=== PATIENT | female | born 1995 | race Caucasian/White ===

== ENCOUNTER 2016-10-27 07:40 | Inpatient (IN) | payer MEDICAID ==
[~2016-10-27] VITALS: Ht 160 cm; Wt 60.0 kg
[2016-10-27 07:40] VITALS: Ht 160 cm; Wt 60.0 kg
[~2016-10-27 07:40] MED LIST: AMIODARONE 900 MG INJ ONE; ATROPINE 1 MG/10 ML SYRINGE ONE; CA CHLORIDE 10% 10 ML SYRINGE ONE; DEXTROSE 5% WATER 500 ML BAG ONE; DEXTROSE 50% 50 ML SYRINGE ONE; DOPamine-D5W 1.6 MG/ML 250 ML ONE; EPINEPHrine 0.1 MG/ML SYG ONE; LIDOCAINE 100 MG SYRINGE ONE; MAGNESIUM SULFATE 1 GM/100 ML D5W IVPB ONE; NA BICARBONATE 8.4% 50 ML SYG ONE
[2016-10-27] MEDS: DOBUTamine/D5W 1 MG/ML DRIP 250 ML IV SCH ×2 (08:00→13:01)
[2016-10-27] MEDS ORDERED: SODIUM CHLORIDE 0.9% 1L BAG IV* STA (08:09)
[2016-10-27] MEDS ORDERED: NORepinephrine 8MG/250 ML (PMX 250 ML IV STA (08:09)
[2016-10-27 08:25] LABS: BASOPHILS % 0.4 % (0.0-2.0); EOSINOPHILS % 0.3 % (0.0-7.0); HEMATOCRIT 30.4 % (37.0-47.0); HEMOGLOBIN 9.9 g/dl (12.0-16.0); LYMPHOCYTES # 5.9 10^3/ul (0.8-2.9); LYMPHOCYTES % 51.6 % (15.0-51.0); MEAN CORPUSCULAR HEMOGLOBIN 27.3 pg (29.0-33.0); MEAN CORPUSCULAR HGB CONC 32.4 g/dl (32.0-37.0); MEAN CORPUSCULAR VOLUME 84.1 fl (82.0-101.0); MEAN PLATELET VOLUME 7.1 fl (7.4-10.4); MONOCYTE # 0.1 10^3/ul (0.3-0.9); NEUTROPHIL # 5.4 10^3/ul (1.6-7.5); NEUTROPHILS % 46.7 % (39.0-77.0); PLATELET COUNT 183 10^3/UL (140-440); RED BLOOD COUNT 3.62 10^6/ul (4.20-5.40); RED CELL DISTRIBUTION WIDTH 13.5 % (11.5-14.5); UNCORRECTED WBC 11.5 10^3/ul (4.8-10.8); WHITE BLOOD COUNT 11.5 10^3/ul (4.8-10.8)
[2016-10-27 08:31] LABS: CONDITION 1; LH ANALYZER COMMENTS 1
--- NOTE | 2016-10-27 08:33 | RADRPT ---
PROCEDURE: XR Chest. CLINICAL INDICATION: Line placement, sepsis TECHNIQUE: A single AP view of the chest was obtained. COMPARISON: None. FINDINGS: The endotracheal tube tip is 3.5 cm above the vu. The tip of the enteric tube extends below the left diaphragm. There are right upper lobe alveolar opacities. No pleural effusion or pneumothorax is seen. The ca rdiomediastinal silhouette is within normal limits for size. The osseous structures are unremarkabl e. IMPRESSION: 1. Right upper lobe pneumonia. 2. Tubes and lines, as described above. RPTAT: HH .Pauline Garcia MD, MD Date Time Electronically viewed and signed by .Pauline Garcia MD, MD on 10/27/2016 08:33 .G/
[2016-10-27 08:40] LABS: AADO2 Arterial 389.5 mmHg (7.0-24.0); Arterial Base Excess -22.2 mmol/L (-3.0-3); Arterial COHb 0.3 % (0.0-3.0); Arterial Fraction of Oxyhgb 98.2 % (93.0-99.0); Arterial HCO3 10.2 mmol/L (22.0-26.0); Arterial MetHb 0.2 % (0.0-1.5); Arterial Total Hemglobin 11.1 g/dl (12.0-18.0); MODE VENT - AC
[2016-10-27] MEDS ORDERED: SODIUM BICARBONATE (IV ADD) 150 MEQ in DEXTROSE 5% 1,000 ML IV STA (08:42)
[2016-10-27 08:44] LABS: ALBUMIN 1.9 g/dl (3.3-4.9)
[2016-10-27 08:47] LABS: ALBUMIN/GLOBULIN RATIO 1.11; CREATININE 1.41 mg/dl (0.44-1.00); TOTAL PROTEIN 3.6 g/dl (6.1-8.1)
[2016-10-27 08:48] LABS: CALCIUM 8.3 mg/dl (8.4-10.2)
[2016-10-27 08:50] LABS: INR 2.32; PROTIME 25.7 Sec (12.2-14.2)
[2016-10-27] MEDS ORDERED: PIPER-TAZO 3.375 GM IV (PMX) 100 ML IVPB STA (08:54)
[2016-10-27] MEDS ORDERED: VANCOMYCIN 1 GM (PMX) 250 ML IVPB STA (08:54)
[2016-10-27 09:07] LABS: TROPONIN-I 0.923 ng/ml (0.00-0.12)
[2016-10-27 09:14] LABS: PARTIAL THROMBOPLASTIN TIME 74.2 Sec (25.0-35.0)
--- NOTE | 2016-10-27 09:16 | RADRPT ---
PROCEDURE: CT brain without contrast CLINICAL INDICATION: Cardiac arrest TECHNIQUE: CT of the brain without contrast was performed on a multidetector CT scanner, with multi planar reformats. One or more of the following dose reduction techniques were used: Automated expos ure control, adjustment in mA and / or kV according to patient size, use of iterative reconstructive technique. CTDIvol = 45 mGy; DLP = 630 mGy-cm. COMPARISON: None available FINDINGS: No acute intracranial hemorrhage is identified. No extra-axial fluid collection is seen. There is no mass effect. No midline shift is identified. Ventricles and sulci are within normal limits for size and configuration. The density of the brain is within normal limits. Cazares-white differentiation is preserved. Osseous structures are unremarkable. Mastoid air cells and imaged paranasal sinuses grossly clear. IMPRESSION: No acute intracranial pathology identified. If there is persistent clinical concern, follow-up with MRI is advised. RPTAT: VV .Adam Tiwari MD, MD Date Time Electronically viewed and signed by .Adam Tiwari MD, on 10/27/2016 09:15 .O/
--- NOTE | 2016-10-27 09:30 | ERA ---
ER Documentation Chief Complaint Date/Time DATE: 10/27/16 TIME: 09:28 Chief Complaint ARRIVED IN FULL CARDIAC ARREST, POSSIBLE HEROIN OD HPI History obtained from EMS this patient is unable to give a history secondary to her clinical condition. This is a 21-year-old female who was brought in by EMS in full cardiac arrest. According to EMS they received a call that was unresponsive patient in a local hotel room. When they entered the room they stated the patient was apneic, with no pulse. They began CPR. They give a total of 3 mg of epinephrine, 1 amp of sodium bicarbonate, and 1 amp of D50, and 2 mg of Narcan. The did get return of spontaneous circulation. Patient was transferred to the emergency room. ROS All systems reviewed and are negative except as per history of present illness. Medications Home Meds Unable to Obtain Active Prescriptions or Reported Meds Allergies Allergies: Coded Allergies: Unable to Assess (Verified Allergy, Severe, 10/27/16) Physical Exam Vitals Vital Signs Date Time Temp Pulse Resp B/P Pulse Ox O2 Delivery O2 Flow Rate FiO2 10/27/16 08:10 88.6 63 20 66/44 99 Mechanical Ventilator Physical Exam INITIAL VITAL SIGNS: Reviewed by me GENERAL: The patient is well developed, apneic, severe distress HEENT: 6 mm pupils fixed, nonreactive. EOMI. There is no scleral icterus. NECK: C-spine is soft and supple, there is no meningismus. There is no cervical lymphadenopathy. LUNGS: No breath sound HEART: Normal heart sounds ABDOMEN: Soft, non-tender, non-distended. There are bowel sounds in all four quadrants. No rebound or guarding. EXTREMITIES: Cold to touch, peripheral cyanosis, NEUROLOGICAL: GCS of 3 SKIN: Cold to touch, peripheral cyanosis HEME/LYMPHATIC: There is no evidence of excessive bruising or lymphedema. PSYCHIATRIC: The patient does not appear anxious or depressed. Result Diagram: 10/27/16 0750 10/27/16 0750 Results 24 hrs Laboratory Tests Test 10/27/16 07:50 10/27/16 08:29 Activated Partial Thromboplast Time 74.2Sec Alanine Aminotransferase (ALT/SGPT) IU/L Albumin 1.9g/dl Albumin/Globulin Ratio 1.11 Alkaline Phosphatase 35IU/L Anion Gap 32 Aspartate Amino Transf (AST/SGOT) IU/L Basophils # 0.010^3/ul Basophils % 0.4% Blood Morphology Comment Blood Urea Nitrogen 12mg/dl Calcium Level 8.3mg/dl Carbon Dioxide Level 23mmol/L Chloride Level 100mmol/L Creatinine 1.41mg/dl Direct Bilirubin 0.00mg/dl Eosinophils # 0.010^3/ul Eosinophils % 0.3% Globulin 1.70g/dl Glucose Level 348mg/dl Hematocrit 30.4% Hemoglobin 9.9g/dl INR International Normalized Ratio 2.32 Indirect Bilirubin 0.0mg/dl Lactic Acid Level 22.7mmol/L Lymphocytes # 5.910^3/ul Lymphocytes % 51.6% Mean Corpuscular Hemoglobin 27.3pg Mean Corpuscular Hemoglobin Concent 32.4g/dl Mean Corpuscular Volume 84.1fl Mean Platelet Volume 7.1fl Monocytes # 0.110^3/ul Monocytes % 1.0% Neutrophils # 5.410^3/ul Neutrophils % 46.7% Nucleated Red Blood Cells # 0.010^3/ul Nucleated Red Blood Cells % 0.0/100WBC Platelet Count 79183^3/UL Potassium Level 5.0mmol/L Prothrombin Time 25.7Sec Prothrombin Time Ratio 2.0 Red Blood Count 3.6210^6/ul Red Cell Distribution Width 13.5% Sodium Level 150mmol/L Total Bilirubin 0.0mg/dl Total Protein 3.6g/dl Troponin I 0.923ng/ml White Blood Count 11.510^3/ul Arterial Blood HCO3 10.2mmol/L Arterial Blood Base Excess -22.2mmol/L Arterial Blood Oxygen Saturation 98.7mmHG Parker Test N/A Arterial Blood Gas Puncture Site Femoral Arterial Blood Carboxyhemoglobin 0.3% Arterial Blood Date Drawn 10/27/2016 8:32:35 AM Arterial Blood Methemoglobin 0.2% Arterial Blood pCO2 (Temp correct) 53.5mmhg Arterial Blood pH (Temp corrected) 6.900 Arterial Blood pO2 (Temp corrected) 270.0mmHG Blood Gas A-a O2 Differential 389.5mmHg Blood Gas Actual Respiration Rate 18 Blood Gas Critical Value Read Back RUBY Lizarraga Blood Gas Modality VENT - AC Blood Gas Notified Time 10/27/2016 8:40:13 AM Blood Gas Notified Whom MDA Blood Gas Respiration Rate 18.0 Blood Gas Specimen Source Blood arterial Blood Gas Temperature 37.0C Blood Gas Tidal Volume 450.0mL FiO2 100.0% Oxyhemoglobin Percent 98.2% Total Hemoglobin 11.1g/dl Current Medications Medications (Trade) Dose Ordered Sig/Marcela Route PRN Reason Start Time Stop Time Status Last Admin Dose Admin Sodium Chloride 1860 ml 1,860 ml BOLUS OVER 2 HOURS STAT IV* 10/27/16 08:09 10/27/16 08:10 DC Norepinephrine 250 ml @ 7.5 mls/hr ONCE STAT IV 10/27/16 08:09 10/28/16 17:28 Sodium Bicarbonate 150 meq/Dextrose 1,150 ml @ 150 mls/hr Q7H40M STAT IV 10/27/16 08:42 10/27/16 16:21 Vancomycin HCl 250 ml @ 125 mls/hr ONCE STAT IVPB 10/27/16 08:54 10/27/16 10:53 Piperacillin Sod/ Tazobactam Sod (Zosyn 3.375gm/ 100 ml (Pmx)) 100 ml @ 200 mls/hr ONCE STAT IVPB 10/27/16 08:54 10/27/16 09:23 DC Procedures/MDM EKG: Rate/Rhythm: [Normal Sinus Rhythm] QRS, ST, T-waves: Diffuse ST depressions Impression: Diffuse ST depressions throughout all leads Chest X-ray 1V Interpreted by me: Soft Tissue: ET tube 2 cm above vu, right upper lobe of Bones: No acute abnormalities Mediastinum/Cardiac Silhouette/Lungs: [No acute abnormalities] CT head; no stroke no bleed This 21-year-old female presents to the emergency room cardiac arrest after being found down. This patient was recently kicked out of her sober living home for testing positive for heroin. She was found down with a last known well time of 1 AM. When she arrived she was pulseless and apneic. The patient was intubated, and CPR was started. We were able to get return of spontaneous circulation. Please see CPR no. This patient does have severely elevated lactic acid, she is acidotic, and hypothermic. She is on a Claire hugger, and on a bicarb drip. Her x-ray does show right upper lobe infiltrate. I do feel this patient has aspirated after overdosing on heroin. This patient had a central line placed, she was started on levo fed, and dopamine. She was given greater than 4 L of IV fluids here in the emergency room and also started on vancomycin and Zosyn. She be placed in ICU at this time. I spoken to the mother who is at bedside and she is aware of this patient's critical condition. Cardiopulmonary Resuscitation by me: See code documentation for specific details. ACLS and BLS were performed with high quality chest compressions and minimal interruptions. Reversible causes were assessed and treated. Endotracheal Intubation by me: Pre assessment performed. See preceding note for details. Pre-oxygenation performed with 100% oxygen RSI: Performed w/o complication or hypoxic events. Medications as ordered. Blade: [Mac 4] ET Tube: 7.5 cm Depth: 23 cm at the lip Intubation confirmed by colorimetric CO2, equal breath sounds, quiet over the stomach. Chest X-ray 1V Interpreted by me: 3 cm above the vu ET tube. Normal soft tissue, No pneumothorax. Central Line Placement by me: Patient consented, sterilely draped, full prep, gown, glove, mask, time out performed. Anesthesia: 1% lidocaine locally Location: Right femoral vein Device: Multiple lumen Technique: Seldinger technique. Secured with suture. Results: Venous return from all ports with easy saline flush. No complications. Guide wire retrieved and disposed of. [ED Ultrasound: Central line placed by me using concurrent ultrasound guidance. Real time image archived in the medical record confirms vascular anatomy. [Chest X-ray 1V Interpreted by me: Central line in SVC, Normal soft tissue, No evidence of pneumothorax.] Critical Care: Excluding all billable procedures Time: 48 minutes Treatments/Evaluations: Close monitoring and treatment of unstable vital signs, cardiorespiratory, and neurologic status, while maintaining tight balance of fluid, respiratory, and cardiac interventions. Departure Diagnosis: Primary Impression: Cardiac arrest Additional Impressions: Metabolic acidosis Hypothermia Aspiration pneumonia Heroin overdose Lactic acidosis Condition: Critical CLAUDE BELTRAN DO Oct 27, 2016 09:29
[2016-10-27] MEDS ORDERED: SOD CHLORIDE 0.9% 1,000 ML IV SCH (10:11)
[2016-10-27] MEDS ORDERED: SOD CHLORIDE 0.9% 1,000 ML IV STA (10:15)
[2016-10-27 10:19] LABS: ADD UMIC YES; URINE BILIRUBIN (Dip) 1+ (NEGATIVE); URINE BLOOD (Dip) NEGATIVE (NEGATIVE); URINE COLOR YELLOW (YELLOW); URINE GLUCOSE (Dip) NEGATIVE (NEGATIVE); URINE KETONES (Dip) TRACE (NEGATIVE); URINE LEUKOCYTE ESTERASE (Dip) NEGATIVE (NEGATIVE); URINE NITRITE (Dip) NEGATIVE (NEGATIVE); URINE TOTAL PROTEIN (Dip) 1+ (NEGATIVE); URINE UROBILINOGEN (Dip) 0.2 E.U./dL (0.1-1.0)
[2016-10-27] MEDS ORDERED: NORepinephrine 8MG/250 ML (PMX 250 ML IV SCH (10:30)
[2016-10-27] MEDS ORDERED: ONDANSETRON 4 MG INJ IV PRN (10:30)
[2016-10-27] MEDS ORDERED: IPRATROPIUM (NEB) 0.5 MG/2.5 ML AMP NEB PRN (10:30)
[2016-10-27] MEDS ORDERED: DOCUSATE SODIUM 100 MG CAP PO PRN (10:30)
[2016-10-27] MEDS ORDERED: ALBUTEROL 0.5% (NEB) 2.5 MG/0.5 ML AMP NEB PRN (10:30)
[2016-10-27] MEDS ORDERED: LORAZEPAM 2 MG INJ IV PRN (10:30)
[2016-10-27] MEDS ORDERED: ACETAMINOPHEN 650 MG SUPP PR PRN (10:30)
[2016-10-27] MEDS ORDERED: VANCOMYCIN IV PER PHARMACY XX SCH (10:30)
[2016-10-27] MEDS ORDERED: NITROGLYCERIN (SL) 0.4 MG TAB SL PRN (10:30)
[2016-10-27] MEDS ORDERED: NALOXONE (0.4 MG/ML) INJ IV PRN (10:30)
[2016-10-27] MEDS ORDERED: ACETAMINOPHEN 325 MG TAB PO PRN (10:30)
[2016-10-27 10:53] LABS: BARBITURATES NEGATIVE (NEGATIVE); BENZODIAZEPINES POSITIVE (NEGATIVE); CANNABINOIDS NEGATIVE (NEGATIVE); COCAINE NEGATIVE (NEGATIVE); ICTOTEST NEGATIVE (NEGATIVE)
[2016-10-27 10:54] LABS: OPIATES POSITIVE (NEGATIVE)
[2016-10-27 10:55] LABS: SQUAMOUS EPITHELIAL CELL,UR FEW; URINE RBCS 0-2 /HPF (0)
--- NOTE | 2016-10-27 11:28 | CONS ---
Date/Time of Note Date/Time of Note DATE: 10/27/16 TIME: 11:20 Assessment/Plan Assessment/Plan Additional Assessment/Plan Assessment recommendations; 1. Patient admitted with cardiac arrest with prolonged CPR lasting more than 20 minutes in aggregate initial one was 10 minutes and the patient had another event in the emergency room lasting another 10 minutes. 2. Likely aspiration pneumonia involving right upper lobe patient currently on adequate antibiotic coverage. 3. Severe hypotension , metabolic acidosis currently on sodium bicarbonate drip patient also adequately fluid resuscitated. Patient on high-dose Levophed and dopamine drips. 4. Severe anoxic brain injury possibility of brain is very high. 5. Mild hypernatremia, and mild elevation in serum creatinine likely from cardiac arrest. Next 6. Mild elevation in troponin likely from CPR. Continue current treatment, sodium bicarb drip, pressors. Continue current antibiotic regimen. Patient also was severely hypothermic with a core temperature of 80F currently on a warming blanket. Would recommend not raising a core temperature to normal and would prefer mild hypothermia. Patient will need to have an arterial line placed when she arrived in ICU. Will obtain neurology consult. Renal function. Her most is extremely poor. Consultation Date/Type/Reason Admit Date/Time Date of Consultation: Oct 27, 2016 Type of Consultation: pulmonary/ critical care Reason for Consultation Respiratory failure, cardiac arrest. Hx of Present Illness Patient is a 20-year-old girl who was brought into the emergency room by EMS after the patient was found unresponsive outside of her home she was obtained from patient's counselor who was present in the emergency room according to him the patient has a history of drug abuse and was found unresponsive EMS were called in and the patient was pulseless along CPR was done lasting about 10 minutes 50 revival of pulse the patient was brought into ER where another episode of cardiac arrest was witnessed and the patient again underwent another round of CPR with 0 Vicryl vital signs patient also has been adequately fluid resuscitated and is currently on maximum doses of Levophed and dopamine drips. Patient remains completely unresponsive. Or intubated. Past medical history; history of drug abuse. Medications please see profile. Family history. Patient does have a supportive family her mother is present in the hospital. Occupational history. Patient is currently unemployed. Next Review of systems; currently unable to be obtained. Social History Smoking Status: Unknown if ever smoked Exam/Review of Systems Vital Signs Vitals Vital Signs Date Time Temp Pulse Resp B/P Pulse Ox O2 Delivery O2 Flow Rate FiO2 10/27/16 08:10 88.6 63 20 66/44 99 Mechanical Ventilator 10/27/16 08:00 100 Exam General exam; young woman or intubated completely unresponsive. HEENT examination supple neck, no JVD, no lymphadenopathy, no thyromegaly, fair dentition. Pupils are completely dilated and nonreactive to light. Chest examination clear to auscultation bilaterally, S1-S2 audible no murmurs. Next Abdomen examination; soft nondistended no organomegaly bowel sounds are absent. Extremity examination; no peripheral edema. Pulses are feeble. WINDOW CUTTER examination; patient completely unresponsive. Results Result Diagram: 10/27/16 0750 10/27/16 0750 Results 24 hrs Laboratory Tests Test 10/27/16 07:50 10/27/16 08:29 10/27/16 09:58 Activated Partial Thromboplast Time 74.2 *H Alanine Aminotransferase (ALT/SGPT) Albumin 1.9 L Albumin/Globulin Ratio 1.11 Alkaline Phosphatase 35 L Anion Gap 32 H Aspartate Amino Transf (AST/SGOT) Basophils # 0.0 Basophils % 0.4 Blood Morphology Comment Blood Urea Nitrogen 12 Calcium Level 8.3 L Carbon Dioxide Level 23 Chloride Level 100 Creatinine 1.41 H Direct Bilirubin 0.00 Eosinophils # 0.0 Eosinophils % 0.3 Globulin 1.70 Glucose Level 348 H Hematocrit 30.4 L Hemoglobin 9.9 L INR International Normalized Ratio 2.32 Indirect Bilirubin 0.0 Lactic Acid Level 22.7 *H Lymphocytes # 5.9 H Lymphocytes % 51.6 H Mean Corpuscular Hemoglobin 27.3 L Mean Corpuscular Hemoglobin Concent 32.4 Mean Corpuscular Volume 84.1 Mean Platelet Volume 7.1 L Monocytes # 0.1 L Monocytes % 1.0 Neutrophils # 5.4 Neutrophils % 46.7 Nucleated Red Blood Cells # 0.0 Nucleated Red Blood Cells % 0.0 Platelet Count 183 Potassium Level 5.0 Prothrombin Time 25.7 H Prothrombin Time Ratio 2.0 Red Blood Count 3.62 L Red Cell Distribution Width 13.5 Sodium Level 150 H Total Bilirubin 0.0 L Total Protein 3.6 L Troponin I 0.923 *H White Blood Count 11.5 H Arterial Blood HCO3 10.2 L Arterial Blood Base Excess -22.2 L Arterial Blood Oxygen Saturation 98.7 H Parker Test N/A Arterial Blood Gas Puncture Site Femoral Arterial Blood Carboxyhemoglobin 0.3 Arterial Blood Date Drawn 10/27/2016 8:32:35 AM Arterial Blood Methemoglobin 0.2 Arterial Blood pCO2 (Temp correct) 53.5 H Arterial Blood pH (Temp corrected) 6.900 *L Arterial Blood pO2 (Temp corrected) 270.0 H Blood Gas A-a O2 Differential 389.5 H Blood Gas Actual Respiration Rate 18 Blood Gas Critical Value Read Back RUBY Lizarraga Blood Gas Modality VENT - AC Blood Gas Notified Time 10/27/2016 8:40:13 AM Blood Gas Notified Whom MDA Blood Gas Respiration Rate 18.0 Blood Gas Specimen Source Blood arterial Blood Gas Temperature 37.0 Blood Gas Tidal Volume 450.0 FiO2 100.0 Oxyhemoglobin Percent 98.2 Total Hemoglobin 11.1 L Urine Amphetamines Screen POSITIVE Urine Barbiturates NEGATIVE Urine Benzodiazepines Screen POSITIVE Urine Bilirubin 1+ H Urine Cannabinoids NEGATIVE Urine Clarity CLEAR Urine Cocaine Screen NEGATIVE Urine Color YELLOW Urine Glucose NEGATIVE Urine Hemoglobin NEGATIVE Urine Ictotest NEGATIVE Urine Ketones TRACE H Urine Leukocyte Esterase NEGATIVE Urine Microscopic RBC 0-2 Urine Microscopic WBC NONE SEEN Urine Nitrite NEGATIVE Urine Opiates Screen POSITIVE Urine Test NEGATIVE Urine Specific Tarpley >=1.030 H Urine Squamous Epithelial Cells FEW Urine Total Protein 1+ H Urine Urobilinogen 0.2 E.U./dL Urine pH 5.5 Medications Medications Current Medications Naloxone HCl (Narcan) 0.4 mg Q3M PRN IV DECREASED REPIRATORY RATE; Start at 10:30; Status UNV Ondansetron HCl (Zofran Inj) 4 mg Q6H PRN IV NAUSEA AND/OR VOMITING; Start at 10:30; Status UNV Nitroglycerin (Nitroglycerin (Sl Tab) 0.4 Mg) 1 tab Q5M PRN SL CHEST PAIN; Start 10/27/16 at 10:30; Status UNV Acetaminophen (Tylenol Tab) 650 mg Q6H PRN PO PAIN LEVEL 1-3 OR FEVER; Start at 10:30; Status UNV Acetaminophen (Tylenol Supp) 650 mg Q4H PRN MI PAIN LEVEL 1-3 OR FEVER; Start 10/27/16 at 10:30; Status UNV Lorazepam (Ativan) 1 mg Q2H PRN IV ANXIETY; Start 10/27/16 at 10:30; Status UNV Docusate Sodium (Colace) 100 mg Q12H PRN PO CONSTIPATION; Start 10/27/16 at 10: 30; Status UNV Pantoprazole 40 mg 40 mg DAILY@06 IV ; Start 10/28/16 at 06:00; Status UNV Cefepime HCl 50 ml @ 100 mls/hr Q12 IVPB ; Start 10/27/16 at 21:00; Status UNV Sodium Chloride 1,000 ml @ 100 mls/hr Q10H IV ; Start 10/27/16 at 10:30; Status UNV Sodium Chloride 1,000 ml @ 1,000 mls/hr Q1H IV ; Start 10/27/16 at 10:11; Stop 10/27/16 at 12:10; Status UNV Dobutamine HCl/ Dextrose 250 ml @ 9 mls/hr TITRATE IV ; Start 10/27/16 at 10:30 ; Status UNV HOA VILLANUEVA Oct 27, 2016 11:27
[2016-10-27 11:38] LABS: CK-MB 38.2 ng/ml (0.0-2.4)
[2016-10-27] MEDS ORDERED: VASOPRESSIN 60 UNIT in SOD CHLORIDE 0.9% 57 ML IV STA (11:40)
[2016-10-27 11:59] LABS: TROPONIN-I 7.41 ng/ml (0.00-0.12)
--- NOTE | 2016-10-27 12:02 | HP ---
DATE OF ADMISSION: 10/27/2016 CONSULTANTS: 1. Neurology. 2. Cardiology. 3. [employer]. NOTATION: A great amount of information was obtained from patient's mother, ER doctor, EMS notes an d the nurses. The patient is not able to provide me with any information since the patient is not r esponsive to pain or verbal stimuli, intubated. CHIEF COMPLAINT: Arriving a full cardiac arrest, possible heroin overdose. HISTORY OF PRESENT ILLNESS: HPI As stated above, history was obtained from EMS, ER physician and [facility] nurse and the patient's mother. The patient is not able to provide me with any information second stephania to her clinical condition. This is a 21-year-old female with past medical history of drug abuse who has been sober living for t he past 5 years and apparently about 2 to 3 days ago, the patient was found to have positive urine d rug screen and was dismissed from the sober/drug rehabilitation. The patient apparently asked the ehabilitation not to contact her mom. She was brought into [facility] Emergency Room via E ID in full cardiac arrest. According to EMS, did receive a call that she was unresponsive in a loca l hotel room. When the entered the room, they stated that patient was apneic with no pulse. They b hemant CPR, 3 mg of epinephrine, 1 ampule of sodium bicarbonate, 1 amp of D50 and 2 of Narcan wa s given and the patient did return to spontaneous circulation. The patient was transferred to the e mergency room where she was intubated and has been placed on epinephrine. Has been placed on Levoph ed and dopamine. At this time, the patient's pupils are fixed and dilated. She is not on any sedat ion, she was found to be hypothermic upon arrival to the emergency room. PAST MEDICAL AND SURGICAL HISTORY: History of drug abuse, otherwise unknown. MEDICATIONS: Unknown. Unable to obtain active prescription or reported medication. REVIEW OF SYSTEMS: All review of systems are not obtainable secondary to patient not able to provid e any information. ALLERGIES: Unable to access. SOCIAL HISTORY: As above per HPI. PHYSICAL EXAMINATION: VITAL SIGNS: Temperature .6, pulse 60, respiration 20, blood pressure 66/44 at time of arrival to emergency room. At this time, on pressors 105/64, oxygen saturation 99% on mechanical ventilati on. GENERAL APPEARANCE: The patient is well developed and intubated, not on sedation, does not respond to pain or verbal stimuli. HEENT: Pupils are fixed, 6 mm and nonreactive. Extraocular motor is not assessable. There is no s cleral icterus. NECK: There is no cervical lymphadenopathy. LUNGS: Distant breath sounds, although as stated above, the patient is intubated. CARDIOVASCULAR: Normal S1, S2. Regular rhythm and rate. No murmur. ABDOMEN: Soft, nontender, not distended. Bowel sounds present. No rebound. EXTREMITIES: Cold to touch. Peripheral cyanosis. NEUROLOGIC: Not obtainable. Patient does not respond to pain or verbal stimuli. SKIN: Cool to touch. Peripheral cyanosis. PSYCHIATRIC: There is no response to pain or verbal stimuli as stated above. LABORATORY WORK AND IMAGING: WBC 11.5, hemoglobin 9.9, hematocrit 30.4, platelets 183. Sodium 150, potassium 5.3, chloride 100, bicarbonate 23, anion gap 32, BUN 12, creatinine 1.41, glucose 348. L actase 22.7, calcium 8.3. Troponin 0.923, total protein 3.6, albumin 1.9. UDS positive for opiates, amphetamine-positive, benzodiazepines positive, cocaine negative, cannabin oids negative, barbiturates negative. Urinalysis +1 protein. Bilirubin positive 1, trace ketones, specific gravity greater than 1.03 ABG: pH 6.90, pCO2 52.3, pCO2 of 270, bicarbonate 10.2, oxygen saturation 98.7 on vent AC 100% FIO2 , tidal volume of 450. ASSESSMENT AND PLAN: 1. Cardiac arrest status post CPR, epinephrine and sodium bicarbonate and Narcan in the field. The patient has spontaneous circulation at this time. 2. Possible anoxic brain injury secondary to cardiac arrest. Neurology has been consulted. We frank l obtain EEG. A CT of the brain does not show any acute finding. 3. Aspiration pneumonia. The patient has been placed on cefepime and vancomycin. 4. Severe sepsis likely secondary to pneumonia versus cardiac arrest has been placed on septic prot ocol on IV fluid, antibiotics and pressors. 5. Acute respiratory failure secondary to cardiac arrest. Pulmonology has been consulted on the ve nt management. 6. Acute renal insufficiency. The patient has been placed on IV fluid. Follow up renal panel in t he a.m. 7. Anemia. Continue to monitor. 8. History of heroin abuse. 9. Hypoxic respiratory failure secondary to cardiac arrest, intubated. Continue vent management. 10. For deep venous thrombosis prophylaxis, on sequential compression devices. 11. For gastrointestinal prophylaxis, on proton pump inhibitor. CODE STATUS: FULL CODE. PROGNOSIS: Critical. We will continue to monitor patient closely. Further recommendations, manage ment and treatment as per clinical course. Total time spent for evaluation of patient and admission workup more than 1 hour. Dictated By: BRITTANY VILLAFUERTE MD PN/NTS Conf#: [id number] DID#: [id number]
[2016-10-27] MEDS ORDERED: SOD CHLORIDE 0.45% 1,000 ML IV SCH (12:15)
[2016-10-27] MEDS ORDERED: DOBUTamine/D5W 1 MG/ML DRIP 250 ML ONE (12:23)
[2016-10-27] MEDS ORDERED: DOPamine-D5W 1.6 MG/ML 250 ML IV SCH (12:30)
[2016-10-27] MEDS ORDERED: HYDROCORTISONE 100 MG INJ IV ONE (12:30)
--- NOTE | 2016-10-27 12:47 | RADRPT ---
PROCEDURE: Chest Radiograph. CLINICAL INDICATION: Hypoxia TECHNIQUE: Single frontal chest radiograph. COMPARISON: Chest radiograph 10/27/2016 at 08:19 a.m. FINDINGS: A pacer pad overlying the left chest limits evaluation. An endotracheal tube and nasogastric tube r emain in stable and radiographically appropriate position. Heart size is within normal limits . Th ere is significant worsening patchy bilateral air space disease likely representing pulmonary edema. Multifocal pneumonia could also have this appearance. Small pleural effusions could be present. The bones are intact. IMPRESSION: 1. Significant worsening bilateral patchy air space disease likely representing worsening pulmonary edema. Multifocal pneumonia could also have this appearance. 2. Lines and tubes are stable. RPTAT: KK .Wilber Archer MD, MD Date Time Electronically viewed and signed by .Wilber Archer MD, on 10/27/2016 12:46 .B/
[2016-10-27 13:00] VITALS: TEMP 86.6
[2016-10-27 14:50] VITALS: BP 52/41; RESP 20
[2016-10-27] MEDS ORDERED: ATROPINE 1 MG/10 ML SYRINGE ONE (14:54)
[2016-10-27] MEDS ORDERED: PHYTONADIONE 10 MG/ML INJ SC ONE (15:00)
[2016-10-27 15:04] VITALS: PULSE 26
[2016-10-27] MEDS ORDERED: NA BICARBONATE 8.4% 50 ML SYG ONE (15:04)
[2016-10-27] MEDS ORDERED: EPINEPHrine 0.1 MG/ML SYG ONE (15:16)
--- NOTE | 2016-10-27 15:49 | QN ---
Documentation Comment ER consult ICU note: ELENITA BROWN was called to room 111 the ICU, I responded. Patient is a 21-year-old female coming for heroin overdose and had ARDS, myocardial infarction, very high PTT, severe metabolic acidosis. I reviewed her labs and history during the code CPR was in progress and 1 epinephrine had arty been given. High-quality CPR was performed with bag mask ventilation which was instructed to be low volume high- frequency for ARDS. ACLS protocol was followed. She'll be given 4 L was ARDS. One more liter of fluid was given. Patient was bleeding through multiple sites, around catheters, from ET tube site. Multiple doses of sodium bicarbonate were given, mild rounds of CPR, calcium chloride was given, dextrose was given. Patient was in PEA until she was in coarse V. fib. Unsynchronized defibrillation was using compressions were continued. Patient was given 300 mg of amiodarone and a gram of magnesium sulfate. Patient never regained a pulse. She had a PEA 1 more time. After that she was asystole on multiple rounds. Lidocaine 100 mg and also been given. Lung Compliance also diminished. Time of was 1524. CPR had been continued for a total of 30 minutes. Family was just outside of the room and Dr. Gonzalez was explained to them what is happening. Patient had a very poor prognosis such a high lactic acid multiple organ failure including the heart and lungs. He also expecting severe acidosis that was likely worsened by lack of perfusion secondary to cardiac arrest with prolonged CPR. The combination of these likely contributed to her cardiac arrest and inability of the heart to respond to treatment. BRENNAN ARTIS DO Oct 27, 2016 15:49
--- NOTE | 2016-10-27 16:21 | RADRPT ---
Echocardiogram Report Patient Name: TALA SOTO Gender: Female Date: 1995 Study Date: 27-Oct-2016 Aviation Technician Aircraft: [employer] RD[employer] Location: 4 Ref. Physician: BRITTANY VILLAFUERTE Quality: Good Procedures: Transthoracic echocardiogram with complete 2D, M-Mode, and doppler examination. Indications: Cardiac Arrest. 2D/M Mode Doppler Measurement Value Normal Ranges Measurement Value Normal Ranges LVIDd 2D 3.3 3.5 - 5.6 cm AV Peak Ernie 1.1 m/sec LVIDs 2D 1.8 2.1 - 4.1 cm AV Peak PG 5.0 mmHg FS 2D 44.3 % LVOT Peak Ernie 1.0 m/sec LVPWd 2D 0.8 0.6 - 1.1 cm LVOT Peak PG 4.0 mmHg IVSd 2D 0.7 0.6 - 1.1 cm MV E Peak Ernie 0.7 m/sec IVS/LVPW 2D 0.9 MV A Peak Ernie 0.5 m/sec AoR Diam 2D 2.0 2.0 - 3.7 cm MV E/A 1.4 LA/Ao 2D 1 0 - 1 MV Decel Time 130 msec EDV 2D 34.3 cm3 MV E/A 1.4 ESV 2D 5.9 cm3 TR Peak Ernie 2.2 m/sec LA Dimen 2D 2.3 2.3 - 4.0 cm TR Peak PG 19.0 mmHg RVSP 22.0 mmHg Findings Left Ventricle: Normal left ventricular systolic function. Normal left ventricular cavity size. Normal left ventricular wall thickness. Ejection fraction is visually estimated at 6570 %. Tissue Doppler/Mitral Doppler indices are within normal limits. Right Ventricle: Normal right ventricular size. Normal right ventricular systolic function. Left Atrium: The left atrium is normal in size. Right Atrium: The right atrium is normal in size. Mitral Valve: Normal appearance and function of the mitral valve with trace physiologic regurgitation. Aortic Valve: Normal appearance of the aortic valve. No significant aortic stenosis or insufficiency. Tricuspid Valve: Normal appearance of the tricuspid valve. Estimated peak PA systolic pressure 22 mmHg. There is trace tricuspid regurgitation. Pericardium: Normal pericardium with no significant pericardial effusion. Aorta: Normal aortic root. IVC: Normal size and normal respiratory collapse consistent with normal right atrial pressure. Conclusions 1.The left ventricle is normal in size and systolic function. 2.Estimated left ventricular ejection fraction of 65-70%. Electronically Signed By: Rayshawn Ramirez 27-Oct-2016 16:21:06 -0800 Patient Name: TALA SOTO Study Date: [id number]
--- NOTE | 2016-10-27 17:26 | DS ---
DATE OF ADMISSION: 10/27/2016 DATE OF DISCHARGE: 10/27/2016 TIME OF : 1524 CAUSE OF : 1. Cardiopulmonary arrest. 2. Status post cardiac arrest, status post cardiopulmonary resuscitation, likely secondary to heroi n overdose. 3. Encephalopathy/anoxic brain injury secondary to cardiac arrest. 4. Aspiration pneumonia. 5. Severe sepsis secondary to pneumonia versus cardiac arrest. 6. Acute respiratory failure secondary to cardiac arrest. 7. Acute renal insufficiency. 8. Heroin abuse. 9. Possible disseminated intravascular coagulation. HOSPITAL COURSE: This was an unfortunate 21-year-old female with past medical history of drug abuse who has been in the rehabilitation and sober living for the past 5 years. Apparently about 2 to 3 days ago, the patient was found to have a positive urine drug screen for amphetamine and was dismiss ed from the sober drug rehabilitation center secondary to finding of positive drug screen. The ramesh ent apparently asked the rehabilitation center not to contact her mom and she was brought into [facility] emergency room via EMS in full cardiac arrest. According to EMS, they did receive a call and she was found to be unresponsive in a local hotel room. When they entered the room and the y stated that patient was apneic and no pulse. They began CPR, 3 mg epinephrine, 1 amp of sodium bi carbonate, 1 amp of D15. Narcan was given. The patient returned to spontaneous circulation. The niko najera was then transferred to the emergency room at [facility] where she was intu bated, placed on Levophed and dopamine. At that time, the patient's pupils were found to be fixed a nd dilated, not responding to any pain or verbal stimuli. She was not on any sedation. She was als o found to be hypothermic upon arrival to the emergency room. Her labs were found to show WBC 11.5, hemoglobin 9.9, hematocrit 34.4, platelets of 183. Sodium 150, potassium 5.0, chloride 100, bicarb barrington 23, anion gap 32, BUN of 12, creatinine 1.41, glucose 348. Lactic acid of 22.7. Calcium 8.3. Troponin 0.923. Albumin 1.9. Toxicology was found to be positive for opiates, amphetamines, arnulfo odiazepines. The ABG was found to be 6.90, pCO2 of 53.5, pO2 of 270, bicarbonate 10.2, saturating 9 8.7% on AC 100% FIO2, tidal volume 450. The patient was treated with Zosyn, sodium bicarbonate, nor mal, and was transferred to the ICU where she was found, at that time, to be bradycardic with ventri cular rate of 30s. The patient was started on atropine. She was found then to be in cardiac arrest . Code Garry was called and patient was started on CPR immediately where she was treated with sodium bicarbonate, epinephrine, and the cardiac arrest protocol. Despite of heroic measures by the ER do ctor and the nurses, the patient continued to be pulseless and patient was pronounced at 1524. The family was at the bedside. Dictated By: BRITTANY GALVEZ/NTS Conf#: [id number] DID#: [id number]
--- NOTE | 2016-10-27 19:56 | CONS ---
Date/Time of Note Date/Time of Note DATE: 10/27/16 TIME: 19:43 Assessment/Plan Assessment/Plan Chief Complaint/Hosp Course 21 y/o with drug abuse, suspected heroin use found down in a hotel room with cardiac arrest with ROSC, intubated started on pressors and tx to the ICU with another cardiac arrest. She received CPR again with multiple attempts, remained pulseless. Neurologic exam prior to ICU admission showed absent brainstem reflexes. -Organ donation contacted, family aware of prognosis -i am available to speak with family should any further questions/concerns arise Problems: Consultation Date/Type/Reason Admit Date/Time 10/27/16 Date of Consultation: Oct 27, 2016 Type of Consultation: neurology Reason for Consultation anoxic brain injury Referring Provider: BRITTANY VILLAFUERTE MD Hx of Present Illness 21 year old female with hx of drug abuse was in rehab for past few years arrived this morning found unresponsive by a friend in a hotel room for suspected heroin overdose. She received CPR by EMS on arrival with ROSC, tx to the ER at [facility] intubated and hypotensive on arrival placed on dopamine and levophed. She was tx to the ICU for further care, coded again and despite aggressive measures remained pulseless with absent brainstem reflexes. Subjective hx not possible: pt critical Social History drug abuse history Smoking Status: Unknown if ever smoked Exam/Review of Systems Vital Signs Vitals Vital Signs Date Time Temp Pulse Resp B/P Pulse Ox O2 Delivery O2 Flow Rate FiO2 10/27/16 15:04 26 10/27/16 14:50 20 52/41 86 Mechanical Ventilator 10/27/16 13:30 100 10/27/16 13:00 86.6 Exam off sedation on pressors unresponsive CN: dilated 6 mm no response to light, absent Doll's absent corneals absent gag Motor: no withdrawal to noxious stimuli Results Result Diagram: 10/27/16 0750 10/27/16 0750 Results 24 hrs Laboratory Tests Test 10/27/16 07:50 10/27/16 08:29 10/27/16 09:58 10/27/16 10:30 Activated Partial Thromboplast Time 74.2 *H Alanine Aminotransferase (ALT/SGPT) Albumin 1.9 L Albumin/Globulin Ratio 1.11 Alkaline Phosphatase 35 L Anion Gap 32 H Aspartate Amino Transf (AST/SGOT) Basophils # 0.0 Basophils % 0.4 Blood Morphology Comment Blood Urea Nitrogen 12 Calcium Level 8.3 L Carbon Dioxide Level 23 Chloride Level 100 Creatinine 1.41 H Direct Bilirubin 0.00 Eosinophils # 0.0 Eosinophils % 0.3 Globulin 1.70 Glucose Level 348 H Hematocrit 30.4 L Hemoglobin 9.9 L INR International Normalized Ratio 2.32 Indirect Bilirubin 0.0 Lactic Acid Level 22.7 *H 20.6 *H Lymphocytes # 5.9 H Lymphocytes % 51.6 H Mean Corpuscular Hemoglobin 27.3 L Mean Corpuscular Hemoglobin Concent 32.4 Mean Corpuscular Volume 84.1 Mean Platelet Volume 7.1 L Monocytes # 0.1 L Monocytes % 1.0 Neutrophils # 5.4 Neutrophils % 46.7 Nucleated Red Blood Cells # 0.0 Nucleated Red Blood Cells % 0.0 Platelet Count 183 Potassium Level 5.0 Prothrombin Time 25.7 H Prothrombin Time Ratio 2.0 Red Blood Count 3.62 L Red Cell Distribution Width 13.5 Sodium Level 150 H Total Bilirubin 0.0 L Total Protein 3.6 L Troponin I 0.923 *H 7.410 *H White Blood Count 11.5 H Arterial Blood HCO3 10.2 L Arterial Blood Base Excess -22.2 L Arterial Blood Oxygen Saturation 98.7 H Parker Test N/A Arterial Blood Gas Puncture Site Femoral Arterial Blood Carboxyhemoglobin 0.3 Arterial Blood Date Drawn 10/27/2016 8:32:35 AM Arterial Blood Methemoglobin 0.2 Arterial Blood pCO2 (Temp correct) 53.5 H Arterial Blood pH (Temp corrected) 6.900 *L Arterial Blood pO2 (Temp corrected) 270.0 H Blood Gas A-a O2 Differential 389.5 H Blood Gas Actual Respiration Rate 18 Blood Gas Critical Value Read Back RUBY Lizarraga Blood Gas Modality VENT - AC Blood Gas Notified Time 10/27/2016 8:40:13 AM Blood Gas Notified Whom MDA Blood Gas Respiration Rate 18.0 Blood Gas Specimen Source Blood arterial Blood Gas Temperature 37.0 Blood Gas Tidal Volume 450.0 FiO2 100.0 Oxyhemoglobin Percent 98.2 Total Hemoglobin 11.1 L Urine Amphetamines Screen POSITIVE Urine Barbiturates NEGATIVE Urine Benzodiazepines Screen POSITIVE Urine Bilirubin 1+ H Urine Cannabinoids NEGATIVE Urine Clarity CLEAR Urine Cocaine Screen NEGATIVE Urine Color YELLOW Urine Glucose NEGATIVE Urine Hemoglobin NEGATIVE Urine Ictotest NEGATIVE Urine Ketones TRACE H Urine Leukocyte Esterase NEGATIVE Urine Microscopic RBC 0-2 Urine Microscopic WBC NONE SEEN Urine Nitrite NEGATIVE Urine Opiates Screen POSITIVE Urine Test NEGATIVE Urine Specific [place] >=1.030 H Urine Squamous Epithelial Cells FEW Urine Total Protein 1+ H Urine Urobilinogen 0.2 E.U./dL Urine pH 5.5 Creatine Kinase 563 H Creatine Kinase Index 6.8 Creatinine Kinase MB (Mass) 38.20 H ARLETH VELEZ MD Oct 27, 2016 19:53
[2016-10-27] MEDS ORDERED: CEFEPIME 1GM/50 ML (PMX) 50 ML IVPB SCH (21:00)
[2016-10-27] MEDS ORDERED: VANCOMYCIN 750 MG in SOD CHLORIDE 0.9% 150 ML IVPB SCH (22:00)
[2016-10-28] MEDS ORDERED: PANTOPRAZOLE 40 MG INJ IV SCH (06:00)
== END 2016-10-27 15:24 | disposition expired | DRG 871 ==
LOC: E/R 07:40 → ICU 10:59
PROVIDERS: ADMIT Family Medicine; ATTEND Family Medicine
PROC: 5A1935Z Respiratory Ventilation, Less than 24 Consecutive Hours (ICD-10-PCS; principal; 2016-10-27)
PROC: 5A12012 Performance of Cardiac Output, Single, Manual (ICD-10-PCS; 2016-10-27)
PROC: 0BH17EZ Insertion of Endotracheal Airway into Trachea, Via Natural or Artificial Opening (ICD-10-PCS; 2016-10-27)
PROC: 02HV33Z Insertion of Infusion Device into Superior Vena Cava, Percutaneous Approach (ICD-10-PCS; 2016-10-27)
PROC: B548ZZA Ultrasonography of Superior Vena Cava, Guidance (ICD-10-PCS; 2016-10-27)
DX: A41.9 Sepsis, unspecified organism (principal); J69.0 Pneumonitis due to inhalation of food and vomit; I46.9 Cardiac arrest, cause unspecified; J96.01 Acute respiratory failure with hypoxia; D65 Disseminated intravascular coagulation [defibrination syndrome]; G93.40 Encephalopathy, unspecified; G93.1 Anoxic brain damage, not elsewhere classified; E87.2 Acidosis; I95.9 Hypotension, unspecified; T40.1X1A Poisoning by heroin, accidental (unintentional), initial encounter; R65.20 Severe sepsis without septic shock; R68.0 Hypothermia, not associated with low environmental temperature; Y92.59 Other trade areas as the place of occurrence of the external cause; E87.5 Hyperkalemia; D64.9 Anemia, unspecified; N28.9 Disorder of kidney and ureter, unspecified
CPT/HCPCS: 31500; 36415; 36600; 70450; 71010; 80053; 80307; 81001; 81003; 82550; 82553; 82803; 83605; 84484; 84703; 85025; 85610; 85730; 87040; 87086; 92950; 93005; 93306; 94002; 96365; 96366; 96375; J0171; J0282; J0461; J0692; J1250; J1265; J1720; J2001; J2543; J3370; J3475; J7030; J7070